=== PATIENT | female | born 1975 | race Caucasian/White ===

== ENCOUNTER → 2016-07-19 | Outpatient (CLI) | payer OTHER ==
--- NOTE | 2016-07-19 18:52 | REP ---
MRI RIGHT FOOT: TECHNIQUE: Sagittal PD, STIR, axial T1, STIR, coronal T1, T2 FS. There is subchondral marrow edema in the head of the first metatarsal with moderate arthritic changes seen at the first metatarsophalangeal joint. There is mild spurring at the margins of the joint. No other abnormal marrow signal is seen. There is no bone marrow edema or occult fracture. There is ill-defined soft tissue edema between the distal shafts of the third and fourth metatarsals, in the region of the interosseous muscles between these metatarsals extending somewhat dorsally. The findings may indicate a strain or tear of interosseous muscles in this region. Alternatively, the findings could indicate a Erwin neuroma. No other abnormal soft tissue signal is seen. The visualized tendons and ligaments at the ankle are intact including the Achilles tendon, posterior tibial tendon and peroneal tendons. Plantar tendon is intact. There is no plantar fasciitis. There is mild scattered joint fluid in the metatarsal phalangeal joints and in the joints of the hindfoot. IMPRESSION: Moderate degenerative joint disease first metatarsal phalangeal joint with subchondral marrow edema in the distal end of the first metatarsal. Ill-defined soft tissue edema in the soft tissues between the third and fourth metatarsals. This may indicate strain or tear of interosseous muscles in this region. Findings could indicate a Erwin neuroma. Further evaluation could be made with MRI imaging with gadolinium. Unreviewed
== END ==
LOC: M RAD 06:46
PROVIDERS: ATTEND Podiatrist
DX: M77.51 Other enthesopathy of right foot and ankle (principal); M19.071 Primary osteoarthritis, right ankle and foot

== ENCOUNTER → 2017-02-27 | Outpatient (REF) | payer OTHER ==
[2017-02-27 12:29] LABS: ALBUMIN 3.9 GM/DL (3.2-5.2); ALBUMIN/GLOBULIN RATIO 1.05 (1.00-1.93); ALKALINE PHOSPHATASE 31 U/L (45-117); ALT/SGPT 24 U/L (12-78); ANION GAP 7 MEQ/L (8-16); AST/SGOT 20 U/L (15-37); BILIRUBIN,TOTAL 0.6 MG/DL (0.2-1.0); BLOOD UREA NITROGEN 17 MG/DL (7-18); CARBON DIOXIDE LEVEL 31 MEQ/L (21-32); CHLORIDE LEVEL 103 MEQ/L (98-107); CHOLESTEROL LEVEL 167 MG/DL (<200); CREATININE FOR GFR 0.76 MG/DL (0.55-1.02); GLOMERULAR FILTRATION RATE > 60.0 (>60); GLUCOSE, FASTING 68 MG/DL (70-105); SODIUM LEVEL 141 MEQ/L (136-145); TOTAL PROTEIN 7.6 GM/DL (6.4-8.2); TRIGLYCERIDES LEVEL 71 MG/DL (<150)
== END ==
LOC: M SFHCCLAY 07:52
PROVIDERS: ATTEND Nurse Practitioner
DX: Z00.00 Encounter for general adult medical examination without abnormal findings (principal)

== ENCOUNTER → 2017-07-30 | Outpatient (REF) | payer OTHER | LOC: M SFHCCLAY 14:41 | DX: J02.9 Acute pharyngitis, unspecified (principal) ==

== ENCOUNTER → 2017-09-22 | Outpatient (CLI) | payer OTHER | LOC: M LRY 17:18 | DX: M19.071 Primary osteoarthritis, right ankle and foot (principal) | CPT/HCPCS: 73630 ==